=== PATIENT | male | born 1960 | race Caucasian/White ===

== ENCOUNTER 2019-03-26 21:37 | Observation (INO) | payer BC ==
--- NOTE | 2019-03-26 23:37 | RAD ---
XR Chest 1 View Portable History: Chest pain Comparison: None. Findings: Lungs are clear. No pneumothorax or effusion. Cardiac silhouette and mediastinal contours a re within normal limits. Impression: No acute intrathoracic abnormality.
[2019-03-26 23:54] LABS: #Eosinphils 0.1 thou/uL (0.0-0.7); #Lymphocytes 1.2 thou/uL (1.20-3.40); #Monocytes 0.5 thou/uL (0.11-0.59); #Neutrophils 4.6 thou/uL (1.40-6.50); %Basophils 0.3 % (0.0-1.0); %Eosinophils 1.6 % (0.0-10.0); %Lymphocytes 19.2 % (21.0-51.0); %Monocytes 7.2 % (0.0-10.0); %Neutrophils 71.7 % (42.0-75.0); Hemoglobin 17.7 g/dL (14.0-18.0); Mean Corpuscular HGB CONC 33.4 g/dL (32.0-36.0); Mean Corpuscular Hemoglobin 32.1 pg (27.0-31.0); Mean Corpuscular Volume 96.2 fL (78.0-98.0); Mean Platelet Volume 8.1 fL (7.4-10.4); Platelet Count 179 thou/uL (130-400); RBC Distribution Width 12.3 % (11.5-14.5); Red Blood Cell (RBC) Count 5.53 mill/uL (4.70-6.10); White Blood Cell (WBC) Count 6.4 thou/uL (4.8-10.8)
[2019-03-27 00:16] LABS: ALT (SGPT) 31 U/L (8-55); AST (SGOT) 20 U/L (5-34); Albumin 4.6 g/dL (3.5-5.0); Alkaline Phosphatase 48 U/L (40-110); Anion Gap 10 mmol/L (10-20); BUN (Urea Nitrogen) 13 mg/dL (8.4-25.7); Bilirubin, Total 0.7 mg/dL (0.2-1.2); Calc. Creatinine Clearance 0 mL/min (70-130); Calcium 9.3 mg/dL (7.8-10.44); Carbon Dioxide 29 mmol/L (22-29); Chloride 101 mmol/L (98-107); Estimated GFR-MDRD 81; Globulin 2.5 g/dL (2.4-3.5); Glucose 95 mg/dL (70-105); Lipase 76 U/L (8-78); Potassium 3.9 mmol/L (3.5-5.1); Protein, Total 7.1 g/dL (6.0-8.3); Sodium 136 mmol/L (136-145)
[2019-03-27] MEDS ORDERED: Aspirin Chewable 81 MG TAB ONE (01:01)
[2019-03-27] MEDS ORDERED: Diazepam 5 MG TAB ONE (01:01)
[2019-03-27 03:20] LABS: Troponin I Less than 0.010 ng/mL (< 0.028)
[2019-03-27 09:39] VITALS: BMI 23.4
[2019-03-27] MEDS ORDERED: Bisacodyl 10 MG SUPP PR PRN (09:48)
[2019-03-27] MEDS ORDERED: Acetaminophen 325 MG TAB PO PRN (09:48)
[2019-03-27] MEDS ORDERED: Guaifenesin DM 100-10/5 ML UDCUP PO PRN (09:48)
[2019-03-27] MEDS ORDERED: Ondansetron PF 4 MG/2 ML Vial IVP PRN (09:48)
[2019-03-27] MEDS ORDERED: Senokot S 8.6-50 MG TAB PO PRN (09:48)
--- NOTE | 2019-03-27 10:47 | HP ---
REASON FOR ADMISSION: Atypical chest pain. HISTORY OF PRESENTING ILLNESS: The patient gives history of waking up around 1: 00 in the morning. He did not feel good. He was hyperactive from then on. He states he uses CPAP, he removed it, did not think it was anything to do with the CPAP machine. A short while later, the patient developed upper left chest pain radiating to his left shoulder with tingling and numbness. He also admits to dry coughing with postnasal drainage. The patient appeared anxious all through from the time he woke up until he came to the emergency room here. Currently, his chest pain has completely resolved. He says that he is off clonazepam taper and has not been taking any from February. PAST MEDICAL AND SURGICAL HISTORY: History of coronary artery disease with prior catheterization done in 2013 in [place] by [address]. Jeffery Barney. He had coronary artery disease, but the vessel was too small to put a stent. He has been on diet, exercise, and medication since then. Stress test done [address] Barney's office was negative as far as he knows. Dyslipidemia, Achilles tendon repair, and obstructive sleep apnea. CURRENT MEDICATIONS: The patient is on, 1. Clopidogrel 75 mg p.o. daily. 2. Melatonin 10 mg p.o. at bedtime. 3. Crestor 10 mg p.o. daily. 4. Irbesartan 150 mg p.o. daily. ALLERGIES: NO KNOWN DRUG ALLERGIES. PERSONAL HISTORY: Does not abuse alcohol or drugs. No history of smoking. 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 He lives alone. He moved recently here from [facility]. FAMILY HISTORY: Both parents are living and healthy. Mom is 79. Father is 83. CODE STATUS: Full. Power of temper mill roller is his mother. REVIEW OF SYSTEMS: CONSTITUTIONAL: Negative for weight loss or gain, ability to conduct usual activities. SKIN: Negative for rash, itching. EYES: Negative for double vision, pain. ENT/MOUTH: Negative for nose bleeding, neck stiffness, pain, tenderness. CARDIOVASCULAR: Negative for palpitations, dyspnea on exertion, orthopnea. RESPIRATORY: Negative for shortness of breath, wheezing, cough, hemoptysis, fever or night sweats. GASTROINTESTINAL: Negative for poor appetite, abdominal pain, heartburn, nausea , vomiting, constipation, or diarrhea. GENITOURINARY: Negative for urgency, frequency, dysuria, nocturia. MUSCULOSKELETAL: Negative for pain, swelling. NEUROLOGIC/PSYCHIATRIC: Negative for anxiety, depression. ALLERGY/IMMUNOLOGIC: Negative for skin rash, bleeding tendency. PHYSICAL EXAMINATION: GENERAL: The patient is a 58-year-old male, who is currently not in any acute distress. VITAL SIGNS: Blood pressure 144/86, pulse 74 per minute, respiratory rate 18 per minute, temperature 98.4 degrees Fahrenheit, and saturating 98% on room air. NECK: Supple. No elevated JVD. HEENT: Eyes; extraocular muscles intact. Pupils reacting to light. Oral cavity, mucous membranes are moist. No exudates or congestion. CARDIOVASCULAR: S1 and S2 heard. Regular rhythm. RESPIRATORY: Air entry 2+ bilateral. No rales or rhonchi. ABDOMEN: Soft. Bowel sounds heard. No tenderness, rigidity, or guarding. EXTREMITIES: No peripheral edema or calf tenderness. VASCULAR: Peripheral pulses 2+ bilateral. No ischemic ulcerations or gangrene. CENTRAL NERVOUS SYSTEM: No gross focal deficits noted. The patient is alert, awake, and oriented well. PSYCHIATRIC: The patient's mood is euthymic. No hallucinations or delusions. LABORATORY DATA: White count of 6, H and H 17 and 53, platelet count 179 with 71% neutrophils, MCV is 96. Electrolytes stable. D-dimer is less than 0.27. BUN 13, creatinine 0.9. Troponin x2 was negative, the third set is 0.04. Liver enzymes within normal limits. Serum glucose 95, albumin 4.6, lipase 76. Chest x-ray done shows no acute cardiothoracic abnormality. EKG done shows normal sinus rhythm at 79 beats per minute. There is nonspecific ST-T wave changes. CLINICAL IMPRESSION AND PLAN: The patient will be under observation on telemetry for atypical chest pain, rule out acute coronary syndrome with prior history of coronary artery disease. The patient admits to having eaten breakfast this morning in the ER. He will be kept n.p.o. for nuclear stress test. Echo with 2D Doppler for LV function will be obtained as well. He will be on full-dose aspirin. Continue his home dose of Plavix, losartan, and Crestor as before. Nitroglycerin paste half-inch q.8 hourly. Lipid profile in the morning. We will continue to closely monitor him on telemetry. Addendum: stress test is -ve for reversible ischemia. DC patient home. Please note this is a same admit and discharge note under observation status. He is adviced to follow with a new PCP and overnight cashier in the local area at the earliest. Job ID: [id number] [facility]
[2019-03-27 12:27] LABS: Troponin I Less than 0.010 ng/mL (< 0.028)
[2019-03-27] MEDS ORDERED: Nitroglycerin 2% Ointment 1 INCH/1 GM Packet TOP SCH (14:00)
[2019-03-27] MEDS ORDERED: ADENOSINE 60 MG/20 ML VIAL ONE (14:35)
--- NOTE | 2019-03-27 15:38 | NM ---
Exam: Nuclear medicine cardiac stress with EF and wall motion HISTORY: Chest pain COMPARISON: None TECHNIQUE: 11.0 mCi of technetium 99m sestamibi for rest imaging and 32.10 mCi of technetium 99m sest amibi for stress imaging. Cardiac gating was performed FINDINGS: Homogeneous distribution of radiotracer on the attenuation corrected images. No evidence of reversibi lity or fixed defect TID is 1.29 End-diastolic volume is 110 mL End systolic volume is 55 mL Cardiac gating and wall motion: Appropriate motion and wall thickening. 50% ejection fraction IMPRESSION: 1. No reversibility. No fixed defect 2. 50% ejection fraction. 2. Transient ischemic dilatation. Transcribed Date/Time: 03/27/2019 3:45 PM
[2019-03-27 15:41] VITALS: BP 152/83; TEMP 98.3
[2019-03-27] MEDS ORDERED: Melatonin 3 MG TAB PO SCH (21:00)
[2019-03-27] MEDS ORDERED: Rosuvastatin 10 MG TAB PO SCH (21:00)
[2019-03-27] MEDS ORDERED: guaiFENesin ER 600 MG TAB PO SCH (21:00)
[2019-03-27] MEDS ORDERED: Famotidine 20 MG TAB PO SCH (21:00)
[2019-03-27] MEDS ORDERED: Losartan 25 MG TAB PO SCH (21:00)
[2019-03-27] MEDS ORDERED: Clopidogrel Bisulfate 75 MG TAB PO SCH (21:00)
[2019-03-28] MEDS ORDERED: Enoxaparin Sodium 40 MG/0.4 ML SYRINGE SC SCH (09:00)
[2019-03-28] MEDS ORDERED: Aspirin 325 mg Enteric Coated Tablet PO SCH (09:00)
--- NOTE | 2019-04-01 00:12 | EKG ---
Test Reason : Blood Pressure : / mmHG Vent. Rate : 079 BPM Atrial Rate : 079 BPM P-R Int : 190 ms QRS Dur : 104 ms QT Int : 358 ms P-R-T Axes : 065 014 020 degrees QTc Int : 410 ms Normal sinus rhythm Cannot rule out Anterior infarct , age undetermined Abnormal ECG Confirmed by GIOVANA MIRAMONTES ([id number]), assistant production editor KAREEN ROUSE ([id number]) on 04/01/2019 12:12:15 AM Referred By: Confirmed By:GIOVANA MIRAMONTES
== END 2019-03-27 16:38 | disposition home or self-care (01) ==
LOC: ERS 21:37 → 2SW 03-27 00:30 → ERHOLD 03-27 01:02 → 2SW 03-27 09:25
PROVIDERS: ADMIT Hospitalist; ATTEND Hospitalist
DX: R07.89 Other chest pain (principal); G47.33 Obstructive sleep apnea (adult) (pediatric); I08.1 Rheumatic disorders of both mitral and tricuspid valves; I25.10 Atherosclerotic heart disease of native coronary artery without angina pectoris; E78.5 Hyperlipidemia, unspecified; Z95.5 Presence of coronary angioplasty implant and graft; Z99.89 Dependence on other enabling machines and devices; Z79.899 Other long term (current) drug therapy
CPT/HCPCS: 36415; 71045; 78452; 80053; 83690; 84484; 85025; 85379; 93005; 93017; 93306; A9500; G0378; J0153